=== PATIENT | male | born 1970 | race Caucasian/White ===

== ENCOUNTER 2025-07-30 16:58 | Emergency (ER) | payer OTHER, SELFPAY ==
[2025-07-30 17:17] VITALS: BP 132/79; PULSE 64; TEMP 36.8; O2SAT 96; BMI 23.0
--- NOTE | 2025-07-30 17:35 | PC.NURSE ---
Sent by [facility] for mental health evaluation. Patient awake and alert. Denies suicidal or homicidal ideation.
--- NOTE | 2025-07-30 17:51 | PC.NURSE ---
Call placed to [facility], spoke with Cheo.
--- NOTE | 2025-07-30 17:52 | PC.NURSE ---
Patient speaking with Cheo from [facility] via telephone at this time.
--- NOTE | 2025-07-30 18:05 | PC.NURSE ---
Completes phone call with [facility], awaiting return phone call from P.
--- NOTE | 2025-07-30 18:15 | PC.NURSE ---
Call received from arthur at [facility], no reason for hospitalization as patient is not suicidal or homicidal.
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
== END 2025-07-30 18:24 | disposition home or self-care (01) ==
PROVIDERS: Emergency Provider Emergency Medicine
DX: F41.8 Other specified anxiety disorders (principal)
CPT/HCPCS: 99283